=== PATIENT | male | born 1990 | race Caucasian/White ===

== ENCOUNTER 2019-07-21 22:13 | Emergency (ER) | payer SELFPAY ==
[2019-07-21] MEDS ORDERED: CLINDAMYCIN 600MG/50ML PREMIX 600 MG/50 ML BAG IVPB ONE (22:33)
--- NOTE | 2019-07-21 22:34 | Emergency Department Record ---
History of Present Illness - General Chief complaint: Lower Extremity Pain Stated complaint: LT KNEE SWELLING/PAIN Time Seen by Provider: 07/21/19 22:15 Source: Patient Mode of Arrival: Ambulatory Limitations: No limitations - History of Present Illness Initial comments: 29 yo male presents to ED for evaluation of swelling, pain, and warmth to the skin overlying the left knee for the past 2-3 days. Patient reports previous cutaneous abscess to the left knee in March of this year, denies fevers, chills, or recent illness. Patient denies history of DM, denies health problems at his baseline. Patient denies pain with movement of the knee joint on examination. MD Complaint: Other Onset/Timin -: Days(s) Location: Right, Knee History of Same: Yes Quality: Aching, Burning Consistency: Constant Improves with: Nothing Worsens with: Nothing Associated Symptoms: Denies other symptoms - Related Data Previous Rx's Medication Instructions Recorded Clindamycin HCl [Cleocin HCl] 300 mg PO QID #40 capsule 07/21/19 Ibuprofen [Motrin] 800 mg PO Q6H PRN #30 tab 07/21/19 Allergies Allergy/AdvReac Type Severity Reaction Status Date / Time No Known Drug Allergies Allergy Verified 04/19/19 23:07 Review of Systems Constitutional: Denies: Chills, Fever, Malaise, Night sweats Eyes: Denies: Eye discharge, Eye pain ENT: Denies: Congestion, Ear pain, Epistaxis Respiratory: Denies: Cough, Dyspnea Cardiovascular: Denies: Chest pain, Dyspnea on exertion Endocrine: Denies: Fatigue, Heat or cold intolerance Gastrointestinal: Denies: Abdominal pain, Nausea, Vomiting Genitourinary: Denies: Incontinence, Retention Musculoskeletal: Denies: Arthralgia, Back pain Skin: Reports: Change in color (Redness/warmth to the left knee). Denies: Bruising Neurological: Denies: Abnormal gait, Confusion, Headache, Seizure Psychiatric: Denies: Anxiety Hematological/Lymphatic: Denies: Anemia, Blood Clots Past Medical History - SOCIAL HISTORY Smoking Status: Current every day smoker Drug Use: None - RESPIRATORY Hx Respiratory Disorders: No - CARDIOVASCULAR Hx Cardio Disorders: No - NEURO Hx Neuro Disorders: No - GI Hx GI Disorders: No - Hx Genitourinary Disorders: No - ENDOCRINE Hx Endocrine Disorders: No - MUSCULOSKELETAL Hx Musculoskeletal Disorders: No - PSYCH Hx Psych Problems: No - HEMATOLOGY/ONCOLOGY Hx Hematology/Oncology Disorders: No Physical Exam - General General Appearance: Alert, Oriented x3, Cooperative, Mild distress Limitations: No limitations - Head Head exam: Atraumatic, Normocephalic, Normal inspection Head exam detail: negative: Abrasion, Contusion, Ann's sign, General tenderness, Hematoma, Laceration - Eye Eye exam: Normal appearance. negative: Conjunctival injection, Periorbital swelling, Periorbital tenderness, Scleral icterus - ENT Ear exam: negative: Auricular hematoma, Auricular trauma Nasal Exam: negative: Active bleeding, Discharge, Dried blood, Foreign body Mouth exam: negative: Drooling, Laceration, Muffled voice, Tongue elevation - Neck Neck exam: Normal inspection. negative: Meningismus, Tenderness - Respiratory Respiratory exam: Normal lung sounds bilaterally. negative: Rales, Respiratory distress, Rhonchi, Stridor - Cardiovascular Cardiovascular Exam: Regular rate, Normal rhythm, Normal heart sounds - GI/Abdominal GI/Abdominal exam: Soft. negative: Rebound, Rigid, Tenderness - Rectal Rectal exam: Deferred - exam: Deferred - Extremities Extremities exam: Tenderness, Other (Erythema, induration, warmth over the supra -patellar region of the left knee on examination, mild fluctuance present. No pain with ROM of the joint on examination.). negative: Calf tenderness, Pedal edema - Back Back exam: Denies: CVA tenderness (R), CVA tenderness (L) - Neurological Neurological exam: Alert, Normal gait, Oriented X3 - Psychiatric Psychiatric exam: Normal affect, Normal mood - Skin Skin exam: Erythema. negative: Abrasion Distribution of rash: LLE Description of rash: Erythematous, Fluctuant, Indurated, Tenderness Course Vital Signs 07/21/19 22:20 Temperature 98.5 F Pulse Rate [ 102 H Pulse Ox Probe] Respiratory 20 Rate Blood Pressure 139/94 [Left Arm] Pulse Ox 98 - Reevaluation(s) Reevaluation #1: 07/21/19 22:47 Procedure Note: 3.0 cm cutaneous abscess overlying the left supra-patellar region was prepped and draped in sterile fashion. The lesion was then anesthetized with 1.5 mL of 1% Lidocaine with epinephrine with good anesthesia. The lesion was then incised with a #11 blade with moderate amount of purulent drainage removed. Lesion was then probed with curved hemostats to break up loculations. Patient tolerated the procedure well without complications. Patient was started on Clindamycin while in the ED and instructed to apply warm soaks twice daily. Patient appears stable for discharge at this time. Reevaluation #2: 07/21/19 23:31 Laboratory studies were reviewed and appear grossly unremarkable for an acute process. Clindamycin has completed infusing Patient appears stable for discharge at this time with instructions to return for an any worsening of his symptoms. Medical Decision Making - Lab Data Result diagrams: 07/21/19 22:52 07/21/19 22:52 Disposition Disposition: Discharge Clinical Impression: Cutaneous abscess Qualifiers: Site of cutaneous abscess: extremity Site of cutaneous abscess of extremity: lower extremity Laterality: left Qualified Code(s): L02.416 - Cutaneous abscess of left lower limb Disposition: Home, Self-Care Condition: (2) Stable Instructions: Abscess (ED) Additional Instructions: Return to ED if your symptoms worsen or if you have any concerns. Clindamycin as directed. Follow-up with your family doctor in 3-5 days as directed. Prescriptions: Clindamycin HCl [Cleocin HCl] 300 mg PO QID #40 capsule Ibuprofen [Motrin] 800 mg PO Q6H PRN #30 tab PRN Reason: Pain - Mod To Severe (5-10) Forms: Patient Portal Access Time of Disposition: 23:32 Quality - Quality Measures Quality Measures: N/A - Blood Pressure Screening Does Patient Have Any of the Following: No Blood Pressure Classification: Hypertensive Reading Systolic Measurement: 139 Diastolic Measurement: 94 Screening for High Blood Pressure: < First Hypertensive BP, F/U Documented > [[id number]] First Hypertensive Follow-up Interventions: Referral to alternative/primary care provider.
[2019-07-21 23:00] LABS: ABSOLUTE NEUTROPHIL COUNT 8.91; BASO % 0.2 % (0-6); EOS % 0.8 % (0-6); GRAN % 77.6 % (47-80); HEMATOCRIT 43.8 % (42.0-52.0); HEMOGLOBIN 14.7 gm/dl (14.0-18.0); LYMPH % 13.2 % (16-45); MEAN CELL VOLUME 88.3 fl (81-97); MEAN CORPUSCULAR HEMOGLOBIN 29.6 pg (27-33); MEAN CORPUSCULAR HGB CONC 33.6 g/dl (32-36); MEAN PLATELET VOLUME 11.4 fl (7.4-10.4); MONO % 8.2 % (0-9); PLATELET COUNT 168 K/uL (130-400); RED BLOOD COUNT 4.96 M/uL (4.40-5.70); RED CELL DISTRIBUTION WIDTH 12.6 % (11.5-14.5); WHITE BLOOD COUNT W/O DIFF 11.5 K/uL (4.2-12.2)
[2019-07-21 23:12] LABS: BLOOD UREA NITROGEN 17 mg/dL (6-20); CREATININE 0.8 mg/dL (0.7-1.2); EST GLOMERULAR FILTRATION RATE > 60 mL/min
[2019-07-21 23:15] LABS: GLUCOSE,RANDOM 107 mg/dL (74-109)
[2019-07-21] MEDS ORDERED: KETOROLAC 30 MG/ML VIAL IVP ONE (23:30)
== END 2019-07-21 23:59 | disposition home or self-care (01) ==
LOC: ER 22:13
DX: L02.416 Cutaneous abscess of left lower limb (principal); F17.210 Nicotine dependence, cigarettes, uncomplicated
CPT/HCPCS: 10060; 80048; 85025; 96365; 96375; 99284; J1885